=== PATIENT | male | born 1985 | race Caucasian/White ===

== ENCOUNTER → 2016-09-13 | Day surgery (SDC) | payer OTHER ==
[~2016-09-13] MED LIST: BUPIVACAINE/EPINEPHRINE 0.25% 50 ML VIAL ONE; LACTATED RINGER'S 1,000 ML BAG IV ONE; LIDOCAINE 1%/EPINEPHrine 1:100,000 SOLN 20 ML VIAL ONE; MIDAZOLAM HCL 2 MG/2 ML VIAL ONE; ONDANSETRON HCL 4 MG/2 ML VIAL IV PUSH ONE; PROPOFOL 200 MG/20 ML AMP IV ONE
--- NOTE | 2016-09-13 11:50 | TN ---
cc: DANYEL MCCOY MD DATE OF SURGERY: 09/13/2016 PREOPERATIVE DIAGNOSIS Lipoma of left upper extremity. POSTOPERATIVE DIAGNOSIS Lipoma of left upper extremity. PROCEDURE Excision of lipoma of left upper extremity, 3 cm. SURGEON Danyel Mccoy [employer]. ANESTHESIA MAC. SPECIMEN Lipoma of left upper extremity. ESTIMATED BLOOD LOSS 5 cc. PROCEDURE IN DETAIL The patient was taken to the operating room, placed in supine position. MAC anesthesia was induced. The left upper extremity was prepped and draped in usual sterile fashion. After infiltration of local anesthetic, an approximately 3 cm incision longitudinally was made over the area of the soft tissue mass. Electrocautery was used to dissect through subcutaneous tissue and a well-circumscribed 3 cm lipoma was removed. Hemostasis was achieved and the incision was closed in two layers with a deep dermal layer of interrupted 3-0 Vicryl and subcuticular 4-0 Monocryl. The skin was also closed with Dermabond. The patient tolerated the procedure well and was taken to PACU in stable condition. Danyel Mccoy MD JPD/BT /11:07 AM /11:43 AM
== END | disposition home or self-care (01) ==
LOC: ESDC 08:55
PROVIDERS: ATTEND Surgery
DX: D17.22 Benign lipomatous neoplasm of skin and subcutaneous tissue of left arm (principal)
CPT/HCPCS: 00400; 24071; 88304; J2250; J2405; J3010; J7120